=== PATIENT | female | born 1950 | race Caucasian/White ===

== ENCOUNTER 2020-04-29 09:20 | Outpatient (CLI) | payer MEDICARE, SELFPAY ==
--- NOTE | ~2020-04-29 | US_ITS ---
EXAMINATION: US right upper quadrant EXAM DATE: 04/29/2020 09:54 INDICATION: Reflux. TECHNIQUE: Multiple grayscale and Doppler images of the abdomen right upper quadrant were obtained (anabela y a technologist who performed the scan) and subsequently reviewed. There is no prior study for francois mata. FINDINGS: The pancreatic head and body are normal in appearance. The pancreatic tail is not visualized. The l iver has normal echogenicity and contour. There are no focal liver lesions identified. There is no evidence of intrahepatic biliary duct dilation. Portal venous flow was seen in the hepatopedal, nor mal direction and has normal Doppler waveform. No right-sided hydronephrosis. Common bile duct measures 3 mm, which is normal. The gallbladder wall is normal in thickness, with ex pected amount of distention. No sonographic evidence of pericholecystic fluid. There is no cholelit hiases. Technologist performing exam reports patient did not demonstrate sonographic Dugan's sign. Please note that this sign is less reliable in patients who have received pain medication. IMPRESSION: 1. Unremarkable abdominal ultrasound exam. Reviewed, dictated and finalized at location A.
== END 2020-04-29 09:21 | disposition home or self-care (01) ==
LOC: ANHIMG 09:28
DX: K21.9 Gastro-esophageal reflux disease without esophagitis (principal)
CPT/HCPCS: 76705

== ENCOUNTER 2020-05-20 13:07 | Outpatient (CLI) | payer MEDICARE, SELFPAY ==
[2020-05-20 18:35] LABS: SARS-CoV-2 RNA PCR Negative
== END 2020-05-20 13:08 | disposition home or self-care (01) ==
LOC: ANHCOVIDDT 06-02 13:08
PROVIDERS: PCP Family Medicine; Visit Provider Internal Medicine Gastroenterology
DX: Z01.812 Encounter for preprocedural laboratory examination (principal); Z11.59 Encounter for screening for other viral diseases
CPT/HCPCS: 87635; C9803; U0003

== ENCOUNTER 2020-05-22 01:43 | Day surgery (SDC) | payer MEDICARE, SELFPAY ==
[2020-05-14 12:31] VITALS: BMI 55.3
[2020-05-22 09:24] VITALS: BP 138/90; PULSE 77; RESP 18; TEMP 36.4; O2SAT 98; BMI 55.0
--- NOTE | 2020-05-22 09:33 | WPDANESEPPF ---
Anes - Initial Pre Proc Eval Procedure: Operation Date: 05/22/20 09:30 Proposed Procedures p Screening Colonoscopy - Jerod Piña MD Date/Time: 05/22/20 09:33 Surgeon: Jerod Piña MD Pre Op Diagnosis: neoplasm Screening Patient Data Age: 69 Gender: F Height: 5 ft 8 in Weight: 164.4 kg Last Vital Signs Temp 36.4 C L 05/22/20 09:24 Pulse 77 05/22/20 09:24 Resp 18 05/22/20 09:24 BP 138/90 05/22/20 09:24 Pulse Ox 98 05/22/20 09:24 Allergies Allergy/AdvReac Type Severity Reaction Status Date / Time No Known Allergies Allergy Verified 05/22/20 09:23 Home Medications Medication Instructions Recorded Confirmed Type amlodipine 5 mg PO DAILY 05/14/20 05/14/20 History cetirizine [Zyrtec] 10 mg PO DAILY 05/14/20 05/14/20 History losartan 100 mg PO DAILY 05/14/20 05/14/20 History metoprolol tartrate 50 mg PO BID 05/14/20 05/14/20 History montelukast 10 mg PO DAILY 05/14/20 05/14/20 History oxybutynin chloride 10 mg PO DAILY 05/14/20 05/14/20 History sertraline 100 mg PO DAILY 05/14/20 05/14/20 History simvastatin 40 mg PO DAILY 05/14/20 05/14/20 History trazodone 100 mg PO DAILY 05/14/20 05/14/20 History Patient hx anesthesia problems: none Family hx anesthesia problems: none PMFSH Past Medical History Medical History (Updated 05/22/20 @ 09:33 by Axel Cedeño MD) HTN (hypertension) Hyperlipidemia Morbid obesity JARED on CPAP Surgical History Surgical History (Updated 05/22/20 @ 09:34 by Axel Cedeño MD) History of total knee arthroplasty Family History Family History Sibling Diabetes mellitus Family history of gastrointestinal disorder Father Family history of lung cancer Other Family history of arthritis Family history of malignant neoplasm Hypertension Social History Social History Smoking status: Never smoker Alcohol intake: never Anes - Eval Final PreProcedure Day of Procedure 05/22/20 09:33 Patient weight: morbidly obese Heart: regular rate and rhythm Lungs: clear to auscultation Airway: Mallampati scale class II Neurological: alert and oriented Last oral intake: >/= 8 hours ASA classification: III Emergent: no Anesthetic plan: proceed Anesthesia type and monitoring: general GIVS and standard monitoring Informed Consent: The patient's anesthetic plan and its attendant risks and benefits were discussed with the patient/family/POA. Questions were solicited and answers provided to the satisfaction of the patient/family/POA.
[2020-05-22] MEDS: LACTATED RINGERS 1,000 ML 150 ML IV CONT (09:37)
--- NOTE | 2020-05-22 10:03 | WPDGICN ---
Assessment and Plan Assessment and plan (1) Encounter for screening colonoscopy: Code(s): Z12.11 - Encounter for screening for malignant neoplasm of colon Status: Acute Assessment and Plan: Patient appears to be at average risk for colon cancer. Screening colonoscopy advised this report follow separately. Further recommendations will be given after endoscopy. (2) Morbid obesity: Code(s): E66.01 - Morbid (severe) obesity due to excess calories Status: Acute GI Consult Note Consult date/time: 05/22/20 10:03 HPI: Kami Miller is a 69 year old female Seen in evaluation at the request of Dr. Racquel Hopkins. patient presents for screening colonoscopy. Her current weight appetite bowel movements are normal. She denies abdominal pain. She has had no bleeding. Family history is noncontributory. Review of Systems Review of Systems: All systems reviewed & are unremarkable except as noted in HPI and below PMFSH Past Medical History Medical History HTN (hypertension) Hyperlipidemia Morbid obesity JARED on CPAP Surgical History Surgical History History of total knee arthroplasty Family History Family History Sibling Diabetes mellitus Family history of gastrointestinal disorder Father Family history of lung cancer Other Family history of arthritis Family history of malignant neoplasm Hypertension Social History Social History Smoking status: Never smoker Alcohol intake: never Meds Home Medications and Allergies Home Medications Medication Instructions Recorded Confirmed Type amlodipine 5 mg PO DAILY 05/14/20 05/14/20 History cetirizine [Zyrtec] 10 mg PO DAILY 05/14/20 05/14/20 History losartan 100 mg PO DAILY 05/14/20 05/14/20 History metoprolol tartrate 50 mg PO BID 05/14/20 05/14/20 History montelukast 10 mg PO DAILY 05/14/20 05/14/20 History oxybutynin chloride 10 mg PO DAILY 05/14/20 05/14/20 History sertraline 100 mg PO DAILY 05/14/20 05/14/20 History simvastatin 40 mg PO DAILY 05/14/20 05/14/20 History trazodone 100 mg PO DAILY 05/14/20 05/14/20 History Allergies Allergy/AdvReac Type Severity Reaction Status Date / Time No Known Allergies Allergy Verified 05/22/20 09:23 Vital Signs Vital Signs - 24 hr 05/22/20 09:24 Temperature 97.5 F L Pulse Rate 77 Respiratory Rate 18 Blood Pressure 138/90 Pulse Oximetry 98 Exam Narrative: Exam Narrative: Physical exam reveals patient to be alert. Vital signs stable. HEENT exam unremarkable. Lungs are clear to auscultation and percussion. Heart is without murmur or extra sounds. Abdominal exam is somewhat obese. Bowel sounds are present soft nontender with no past splenomegaly. Digital external rectal exam normal.
[2020-05-22 10:37] VITALS: BP 94/53; PULSE 78; RESP 31; O2SAT 98
[2020-05-22 10:47] VITALS: BP 106/76; PULSE 78; RESP 21; RESP 22; O2SAT 99
== END 2020-05-22 11:07 | disposition home or self-care (01) ==
PROVIDERS: PCP Family Medicine; Visit Provider Internal Medicine Gastroenterology
PROC: 0DJD8ZZ Inspection of Lower Intestinal Tract, Via Natural or Artificial Opening Endoscopic (ICD-10-PCS; CPT 45378; principal; 2020-05-22 09:30)
DX: Z12.11 Encounter for screening for malignant neoplasm of colon (principal); K64.8 Other hemorrhoids; I10 Essential (primary) hypertension; E78.5 Hyperlipidemia, unspecified; G47.33 Obstructive sleep apnea (adult) (pediatric); E66.01 Morbid (severe) obesity due to excess calories; Z68.43 Body mass index [BMI] 50.0-59.9, adult
CPT/HCPCS: G0121; J2704; J7120

== ENCOUNTER 2021-02-10 11:18 | Outpatient (CLI) | payer MEDICARE, SELFPAY ==
--- NOTE | ~2021-02-10 | XR_ITS ---
EXAMINATION: XR femur LT min 2V, XR hip LT min 3V w AP pelvis DATE: 02/10/2021 12:09 INDICATION: Left hip and leg pain with nighttime cramping. TECHNIQUE: 1. Anteroposterior view of the pelvis and anteroposterior, frog leg and cross-table lateral views of the left hip were obtained. 2. AP and lateral views of the left femur were obtained on overlapping proximal and distal radiograph s. COMPARISON: None. FINDINGS: Lateral plate and screw fixation spanning an old healed fracture of the distal left femoral diaphysis which has healed in essentially anatomic alignment. There is also a left total knee arthroplasty wit hout patellar resurfacing also in near-anatomic alignment. 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 No acute fracture. No suspected osteonecrosis. No left knee joint effusion. IMPRESSION: 1. No acute osseous abnormality. 2. Left total knee arthroplasty and internal fixation of an old healed distal left femoral diaphyseal fracture, both in near-anatomic alignment. Reviewed, dictated and finalized at location A. IMPRESSION: 1. No acute osseous abnormality. 2. Left total knee arthroplasty and internal fixation of an old healed distal l eft femoral diaphyseal fracture, both in near-anatomic alignment.
== END 2021-02-10 11:19 | disposition home or self-care (01) ==
PROVIDERS: PCP Family Medicine; Visit Provider Family Medicine
DX: M25.552 Pain in left hip (principal); Z96.652 Presence of left artificial knee joint
CPT/HCPCS: 73502; 73552

== ENCOUNTER → 2022-10-27 00:13 | Day surgery (SDC) | payer MEDICARE, SELFPAY ==
[2022-10-20 11:00] VITALS: BP 101/66; PULSE 51; RESP 15; O2SAT 99
[2022-10-26 09:22] VITALS: BMI 55.5
[2022-10-26 10:45] VITALS: BP 109/73; PULSE 59; RESP 14; O2SAT 99
[2022-10-27] VITALS (11 sets, daily range): BP systolic 97–118; BP diastolic 53–90; PULSE 52–88; RESP 11–20; TEMP 36.5; O2SAT 95–100; BMI 55.9
--- NOTE | 2022-10-27 08:30 | ECG_ITS ---
Measurements Intervals [place] Rate: 58 P: 55 HI: 221 QRS: 6 QRSD: 95 T: -12 QT: 430 QTc: 423 Interpretive Statements SINUS BRADYCARDIA WITH FIRST DEGREE AV BLOCK NONSPECIFIC T-WAVE ABNORMALITY- INFERIOR LEADS BORDERLINE ECG COMPARED TO ECG 10/27/2022 08:51:17 SINUS BRADYCARDIA NOW PRESENT FIRST DEGREE AV BLOCK NOW PRESENT Electronically Signed On 10-27-2022 10:51:19 PAYROLL TECHNICIAN by Nam Carlton D.O.
[2022-10-27 09:23] LABS: Anion Gap 6 mmol/L (8-16); Blood Urea Nitrogen 15 mg/dL (7-17); Calcium 9.1 mg/dL (8.4-10.2); Carbon Dioxide 31 mmol/L (22-30); Chloride 101 mmol/L (98-107); Estimated CRCL calculation 101 ml/min; Estimated Glomerular Filt Rate > 60; Glucose 103 mg/dL (65-110); Magnesium 1.9 mg/dL (1.6-2.3); Potassium 3.5 mmol/L (3.4-5.0); Sodium 138 mmol/L (137-145)
--- NOTE | 2022-10-27 10:00 | WPDHPUPDATE1 ---
History and Physical Update Update Date/Time: 10/27/22 10:00 History and Physical has been reviewed, including an updated exam of the patient. There are NO changes in the patient's condition. Risks, benefits, and alternatives have been discussed and questions answered. Patient agrees to proceed with procedure.
--- NOTE | 2022-10-27 10:01 | WPDMODSED ---
Moderate Sedation Note-Pt Data Patient Data Diagnosis: Atrial fibrillation Present Complaint: None Procedure to be performed/Plan: Elective electrical cardioversion Allergies Allergy/AdvReac Type Severity Reaction Status Date / Time pollen extracts Allergy Unknown Verified 10/27/22 08:50 Home Medications Medication Instructions Recorded Confirmed Type amlodipine 5 mg tablet 5 mg PO DAILY 05/14/20 10/26/22 History cetirizine 10 mg capsule (Zyrtec) 10 mg PO DAILY 05/14/20 10/26/22 History losartan 100 mg tablet 100 mg PO DAILY 05/14/20 10/26/22 History metoprolol tartrate 50 mg tablet 50 mg PO BID 05/14/20 10/26/22 History montelukast 10 mg tablet 10 mg PO DAILY 05/14/20 10/26/22 History oxybutynin chloride 10 mg 10 mg PO DAILY 05/14/20 10/26/22 History tablet,extended release 24 hr sertraline 100 mg tablet 100 mg PO DAILY 05/14/20 10/26/22 History simvastatin 40 mg tablet 40 mg PO DAILY 05/14/20 10/26/22 History trazodone 100 mg tablet 100 mg PO DAILY PRN Pain 05/14/20 10/26/22 History apixaban 5 mg tablet (Eliquis) 5 mg PO BID 10/26/22 10/26/22 History cholecalciferol (vitamin D3) 50 50 mcg PO DAILY 10/26/22 10/26/22 History mcg (2,000 unit) tablet pantoprazole 40 mg tablet,delayed 40 mg PO DAILY 10/26/22 10/26/22 History release tramadol 50 mg tablet 50 mg PO HS PRN Pain 10/26/22 10/26/22 History triamterene 37.5 1 tablet PO DAILY 10/26/22 10/26/22 History mg-hydrochlorothiazide 25 mg tablet Current Medications: Active Medications Sodium Chloride (Normal Saline Iv) 1,000 mls @ 30 mls/hr IV CONT .Q24H JOSE Sedation/Anesthesia: No previous sedation/anesthesia problems (including family history). [facility] Past Medical History Medical History Atrial fibrillation HTN (hypertension) Hyperlipidemia Morbid obesity JARED on CPAP Surgical History Surgical History History of total knee arthroplasty Family History Family History Sibling Diabetes mellitus Family history of gastrointestinal disorder Father Family history of lung cancer Other Family history of arthritis Family history of malignant neoplasm Hypertension Social History Social History Smoking status: Never smoker Alcohol intake: never Alcohol use details: rare Substance use type: does not use Spiritual care concerns: No Mod Sed Physical Exam Physical Exam Pre Procedural Exam: Normal: Appearance, Eyes, Ears, Nose, Neck (Supple, normal range of motion), Throat (Posterior hypopharynx clear nonerythematous), Airway (No obstruction, normal anatomy), Lungs (Clear to auscultation bilaterally), Heart Size, Heart Rate, Neuro Exam, Liver, Extremities and Skin and Variation: Heart Rhythm (Irregular irregular) and Abdomen (Obese) Hours since solid foods: 12 Hours since liquid intake: 12 Mallampati Classification: class III Internal Medicine - PN: Obj Da Vital Signs Vital Signs: Vital Signs - 24 hr 10/27/22 08:58 Temperature 36.5 C Pulse Rate 88 Respiratory Rate 20 Blood Pressure 118/79 Pulse Oximetry 98 Oxygen Delivery Room Air Meds/Results Medications: Active Medications Generic Name Dose Route Start Last Admin Trade Name Freq PRN Reason Stop Dose Admin Sodium Chloride 1,000 mls @ 30 mls/hr 10/27/22 08:30 Normal Saline Iv IV CONT .Q24H JOSE Labs 10/27/22 08:55 Labs: Laboratory Results - last 24 hr 10/27/22 08:55 Sodium 138 Potassium 3.5 Chloride 101 Carbon Dioxide 31 H Anion Gap 6 L BUN 15 Creatinine 0.70 Estim Creat Clear Calc 101 Estimated GFR > 60 Glucose 103 Calcium 9.1 Magnesium 1.9 ASA Classification/Sedation ASA Classification/Sedation ASA Class: IV Emergent: No Risks: Risks, benefits and altern
--- NOTE | 2022-10-27 10:04 | P.PCNCVR_ITS ---
Cardioversion Cardioversion Date of procedure: 10/27/22 Procedure: Elective electrical cardioversion Pre-op diagnosis: Atrial fibrillation Post-op diagnosis: Same Indications: Atrial fibrillation Description of procedure: Brief history present illness: Patient is a pleasant 72-year-old female with recent diagnosis atrial fibrillation, hypertension, JARED on CPAP, morbid obesity, hyperlipidemia maintaining chronic anticoagulation for greater than 4 weeks subsequently referred for elective electrical cardioversion in attempt to restore sinus rhythm. Procedure in detail: After verbal and written informed consent was obtained the patient risks, benefits, and alternatives explained in detail the patient agreed to proceed with the plan of care as outlined above. Patient was evaluated at bedside in the [facility] room. On examination, neck was supple with normal range of motion, no restrictions to opening of the oral cavity, jaw angle and posterior hypopharynx was clear. Lungs were clear to auscultation. Patient was placed in appropriate 30 to 45 degree angle in a supine position. Patient was monitored throughout the study with telemetry, oxygen saturation, end-tidal CO2 monitoring, blood pressure, heart rate, and respirations. Anterior and posterior defibrillator pads placed in the appropriate positions. After confirmation of adequate sedation electrical cardioversion was carried out without complication. Patient tolerated the procedure well without difficulty. Patient utilized her home CPAP unit for support during the procedure inspected by respiratory therapy prior to initiation. Sedation: Moderate Sedation/Anesthesia administration: Patient denied previous intolerance or complications with anesthesia/sedation. Patient wore her home CPAP unit throughout sedation for respiratory support. Please see sedation note for documentation of the pre-procedure physical examination. A total of 5 mg intravenous Versed and a total of 125 mcg intravenous Fentanyl in multiple divided doses was utilized for moderate sedation. Sedation start time was 1018 and end time was 1039 for a total of 21 minutes [id number] intra-procedure time. Sedation was administered by a qualified observer Jennifer Allen RN under my supervision with intra-procedure [id number] observation and management throughout the entirety of the procedure. There were no other issues or complications and patient tolerated the procedure well and sedation protocol well and I was present for the entirety. Findings: Elective electrical cardioversion: After confirmation of adequate sedation and persistence of atrial fibrillation, 200 joules synched biphasic energy x1 was delivered with immediate mormonism of sinus rhythm. Twelve lead EKG was obtained postprocedure confirming sinus rhythm. Complications: None Conclusion: Successful mormonism of sinus rhythm with 200 joules synched biphasic energy x1. Recommendations: Continue systemic anticoagulation without discontinuation unless advised and particularly for the next 30 days post cardioversion.
--- NOTE | 2022-10-27 10:05 | ECG_ITS ---
Measurements Intervals [place] Rate: 84 P: LA: 0 QRS: 0 QRSD: 91 T: -6 QT: 386 QTc: 456 Interpretive Statements ATRIAL FIBRILLATION CONSIDER INFERIOR INFARCT, AGE INDETERMINATE BASELINE ARTIFACT- I, II, AVR, AVL ABNORMAL ECG NO PREVIOUS ECG AVAILABLE FOR COMPARISON Electronically Signed On 10-27-2022 9:37:25 IDENTIFICATION AND RECORDS COMMANDER by Nam Carlton D.O.
--- NOTE | 2022-10-27 12:01 | SUR.PHASEII ---
stable at time of d/c to exit. d/c via wheelchair with belongings.
== END | disposition home or self-care (01) ==
PROVIDERS: PCP Family Medicine; Visit Provider Internal Medicine Cardiovascular Disease
PROC: 5A2204Z Restoration of Cardiac Rhythm, Single (ICD-10-PCS; principal; 2022-10-27 10:00)
DX: I48.19 Other persistent atrial fibrillation (principal); I10 Essential (primary) hypertension; E78.2 Mixed hyperlipidemia; G47.33 Obstructive sleep apnea (adult) (pediatric); E66.01 Morbid (severe) obesity due to excess calories; Z68.43 Body mass index [BMI] 50.0-59.9, adult; Z79.01 Long term (current) use of anticoagulants
CPT/HCPCS: 36415; 80048; 83735; 92960; J2250; J3010; J7030

== ENCOUNTER 2023-02-06 13:02 | Emergency (ER) | payer MEDICARE, SELFPAY ==
--- NOTE | ~2023-02-06 | XR_ITS ---
EXAMINATION: XR chest 2V DATE: 02/06/2023 14:22 INDICATION: Shortness of breath and cough TECHNIQUE: PA and lateral views of the chest are obtained. COMPARISON: 02/23/2018 FINDINGS: The lungs are free of acute opacities. No pleural effusion or pneumothorax. The cardiomedia stinal silhouette is normal. There is moderate thoracic spondylosis. IMPRESSION: 1. No acute cardiopulmonary abnormality. Reviewed, dictated and finalized at location F.
[2023-02-06 13:21] VITALS: BP 103/89; PULSE 63; RESP 16; TEMP 37.2; O2SAT 99
--- NOTE | 2023-02-06 13:55 | ED.GENADULT ---
HPI - General Adult General Chief complaint: Upper Respiratory Infection Stated complaint: shortness of breath,cough,congestion Time Seen by Provider: 02/06/23 13:50 Source: patient Mode of arrival: ambulatory Limitations: no limitations History of Present Illness HPI narrative: 72 years old female who presents to [facility] care with complaints of cough, congestion, aching and some shortness of breath since Tuesday.Patient reports that initially she had sinus congestion that went into cough which at times is productive but mainly dry hacking and is keeping her awake at night. Patient reports that she does have some sore throat, denies any ear pain or fevers. Patient reports daughter recent diagnosis of strep. Patient has taken OTC allergy medication and Singulair daily, has taken some Mucinex. MD complaint: cough , congestion,dyspnea Onset (ago): day(s) (4-5 days) Severity scale (1-10): 3 Treatments prior to arrival: other (zyrtec, Singulair, Mucinex) Related Data Home Medications Medication Instructions Recorded Confirmed amlodipine 5 mg tablet 5 mg PO DAILY 05/14/20 02/06/23 cetirizine 10 mg capsule (Zyrtec) 10 mg PO DAILY 05/14/20 02/06/23 losartan 100 mg tablet 100 mg PO DAILY 05/14/20 02/06/23 metoprolol tartrate 50 mg tablet 50 mg PO BID 05/14/20 02/06/23 montelukast 10 mg tablet 10 mg PO DAILY 05/14/20 02/06/23 oxybutynin chloride 10 mg 10 mg PO DAILY 05/14/20 02/06/23 tablet,extended release 24 hr sertraline 100 mg tablet 100 mg PO DAILY 05/14/20 02/06/23 simvastatin 40 mg tablet 40 mg PO DAILY 05/14/20 02/06/23 apixaban 5 mg tablet (Eliquis) 5 mg PO BID 10/26/22 02/06/23 cholecalciferol (vitamin D3) 50 50 mcg PO DAILY 10/26/22 02/06/23 mcg (2,000 unit) tablet pantoprazole 40 mg tablet,delayed 40 mg PO DAILY 10/26/22 02/06/23 release tramadol 50 mg tablet 50 mg PO HS PRN Pain 10/26/22 02/06/23 triamterene 37.5 1 tablet PO DAILY 10/26/22 02/06/23 mg-hydrochlorothiazide 25 mg tablet Allergies Allergy/AdvReac Type Severity Reaction Status Date / Time pollen extracts Allergy Unknown Verified 02/06/23 13:05 Review of Systems Review of Systems: CONSTITUTIONAL: Denies malaise, chills, sweats, or fever. EYES: Denies visual changes, redness, or discharge. ENT: Reports rhinorrhea, congestion, sinus pain, no otalgia some sore throat. CARDIOVASCULAR: Denies chest pain, palpitations, or edema. RESPIRATORY: Reports cough.?Reports some dyspnea. GASTROINTESTINAL: Denies abdominal pain, nausea, vomiting, diarrhea SKIN: Denies rash or itching. MUSCULOSKELETALReports myalgia. NEUROLOGIC: Denies headache. All systems reviewed & are unremarkable except as noted in HPI and below PMFSH Past Medical History Medical History (Updated 02/07/23 @ 22:43 by Geno Nicolas NP) Atrial fibrillation Femur fracture, left orif HTN (hypertension) Hyperlipidemia Morbid obesity JARED on CPAP Surgical History Surgical History (Updated 02/07/23 @ 22:43 by Geno Nicolas NP) H/O inguinal hernia repair History of appendectomy History of total knee arthroplasty bilateral Hx of cataract surgery Family History Family History Sibling Diabetes mellitus Family history of gastrointestinal disorder Father Family history of lung cancer Other Family history of arthritis Family history of malignant neoplasm Hypertension Social History Social History Smoking status: Never smoker Alcohol intake: never Alcohol use details: rare Substance use type: does not use Spiritual care concerns: No Comments At time of signature, agree with nursing past medical, surgical, social and family history. There is no relevant family history pertinent to the presenting complaint Exam Narrative: GENERAL: Well-appearing, well-nourished, and in no acute distress. HEAD: Normoceph
== END 2023-02-06 15:00 | disposition home or self-care (01) ==
PROVIDERS: Emergency Provider Registered Nurse; PCP Family Medicine
DX: J40 Bronchitis, not specified as acute or chronic (principal); I48.91 Unspecified atrial fibrillation; I10 Essential (primary) hypertension; E78.5 Hyperlipidemia, unspecified; G47.33 Obstructive sleep apnea (adult) (pediatric); E66.01 Morbid (severe) obesity due to excess calories; Z68.43 Body mass index [BMI] 50.0-59.9, adult; Z96.653 Presence of artificial knee joint, bilateral
CPT/HCPCS: 71046; 87081; 87804; 87880; 99213; G0463

== ENCOUNTER 2023-08-26 06:37 | Outpatient (CLI) | payer MEDICARE, SELFPAY ==
--- NOTE | ~2023-08-26 | CT_ITS ---
EXAMINATION: CT abdomen pelvis wo/w con DATE: 08/26/2023 07:20 INDICATION: Hematuria. Left upper quadrant abdominal pain. TECHNIQUE: Computed tomography (CT) of the abdomen and pelvis was performed without and subsequently with 130 CC Omnipaque 350 intravenous contrast. Automated exposure control and iterative reconstructi on technique were employed. Exam dose: 3201.27 mGy-cm total exam DLP. COMPARISON: 07/09/2016 CT abdomen pelvis FINDINGS: The lung bases are clear of infiltrate or consolidation. Normal heart size. No pericardial or pleural effusion. Heart size is within normal range. There is coronary artery calcification. No pericardial or pleural effusion. The liver, spleen, pancreas, gallbladder, bile ducts and pancreatic duct and adrenal glands appear no rmal. There is an approximately 1.7 cm poorly circumscribed hypoattenuating mass with some enhancement of t he posterior aspect of the upper pole the right kidney. Hypernephroma is not excluded. There are scattered probable small right renal left renal cysts, too small to definitively characteri ze. Consider MR examination of the kidneys. No urinary tract calculus or hydroureteronephrosis. Prominent benign appearing calcification in the region of the uterine fundus may be a calcified seros al uterine fibroid. No ovarian or adnexal mass lesion. There is atherosclerotic calcification but normal caliber of the abdominal aorta. No intraperitoneal or retroperitoneal or pelvic mass lesion or adenopathy or ascites is detected. No bowel obstruction, bowel wall thickening, pneumatosis or intraperitoneal free air is detected. Degenerative change of the included lower thoracic spine. Severe lumbar spondylosis. No suspicious osteolytic or osteoblastic lesions are noted. IMPRESSION: Poorly circumscribed 1.7 cm mass of the posterior upper pole of the right kidney, suspic ious for possible hypernephroma. Multiple hypoattenuating lesions of both kidneys, too small to definitively characterize. Consider MR kidney examination for further evaluation Reviewed, dictated and finalized at Location A. Reviewed, dictated and finalized at location B. PLOTTER IMPRESSION: Poorly circumscribed 1.7 cm mass of the posterior upper pole of th e right kidney, suspicious for possible hypernephroma. Multiple hypoattenuating lesions of both kidneys, too small to definitively amanda racterize. Consider MR kidney examination for further evaluation
[2023-08-26 07:05] LABS: Estimated Glomerular Filt Rate > 60
== END 2023-08-26 06:38 | disposition home or self-care (01) ==
PROVIDERS: PCP Family Medicine; Visit Provider Family Medicine
DX: N28.89 Other specified disorders of kidney and ureter (principal); R10.12 Left upper quadrant pain; R31.9 Hematuria, unspecified
CPT/HCPCS: 74178; Q9967

== ENCOUNTER 2023-09-24 13:06 | Emergency (ER) | payer MEDICARE, SELFPAY ==
--- NOTE | ~2023-09-24 | XR_ITS ---
XR wrist RT min 3V 09/24/2023 13:26 Indication: Right wrist trauma with pain Procedure: 4 views right wrist Comparison: No prior studies for comparison. 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 Osteopenia. Th ere is chondrocalcinosis. No acute fracture or traumatic malalignment. No foreign bodies. Impression: 1: No acute fracture. Reviewed, dictated and finalized at location A. TION DESCRIPTION MANAGER Impression: 1: No acute fracture.
[2023-09-24 13:16] VITALS: BP 146/78; PULSE 66; RESP 16; TEMP 35.7; O2SAT 100
--- NOTE | 2023-09-24 13:16 | ED.UPPEXIN ---
HPI - Extremity Injury (Upper) General Chief Complaint: Extremity Injury, Upper Stated Complaint: Right Hand Pain Time Seen by Provider: 09/24/23 13:17 Source: patient Mode of arrival: ambulatory Limitations: no limitations History of Present Illness HPI narrative: Chantal is a 73-year-old female patient presenting to the clinic today with complaints of right wrist pain. She reports yesterday afternoon she was sitting in a chair when the chair broke and she injured her right wrist. Reports the pain has gradually gotten worse since yesterday. Is now unable to flex and extend her wrist without significant pain. Reports the pain radiates into her hand and slightly into her forearm. Related Data Home Medications Medication Instructions Recorded Confirmed amlodipine 5 mg tablet 5 mg PO DAILY 05/14/20 02/06/23 cetirizine 10 mg capsule (Zyrtec) 10 mg PO DAILY 05/14/20 02/06/23 losartan 100 mg tablet 100 mg PO DAILY 05/14/20 02/06/23 metoprolol tartrate 50 mg tablet 50 mg PO BID 05/14/20 02/06/23 montelukast 10 mg tablet 10 mg PO DAILY 05/14/20 02/06/23 oxybutynin chloride 10 mg 10 mg PO DAILY 05/14/20 02/06/23 tablet,extended release 24 hr sertraline 100 mg tablet 100 mg PO DAILY 05/14/20 02/06/23 simvastatin 40 mg tablet 40 mg PO DAILY 05/14/20 02/06/23 apixaban 5 mg tablet (Eliquis) 5 mg PO BID 10/26/22 02/06/23 cholecalciferol (vitamin D3) 50 50 mcg PO DAILY 10/26/22 02/06/23 mcg (2,000 unit) tablet pantoprazole 40 mg tablet,delayed 40 mg PO DAILY 10/26/22 02/06/23 release tramadol 50 mg tablet 50 mg PO HS PRN Pain 10/26/22 02/06/23 triamterene 37.5 1 tablet PO DAILY 10/26/22 02/06/23 mg-hydrochlorothiazide 25 mg tablet Allergies Allergy/AdvReac Type Severity Reaction Status Date / Time pollen extracts Allergy Unknown Verified 02/06/23 13:05 Review of Systems Review of Systems: Pertinent positives per HPI. Patient denies any fever, chills, rash, headache, visual changes, dizziness, cough, runny nose, sore throat, shortness of breath, chest pain, palpitations, nausea, vomiting, diarrhea, constipation, abdominal pain, or any urinary issues. [facility] Past Medical History Medical History Atrial fibrillation Femur fracture, left orif HTN (hypertension) Hyperlipidemia Morbid obesity JARED on CPAP Surgical History Surgical History H/O inguinal hernia repair History of appendectomy History of total knee arthroplasty bilateral Hx of cataract surgery Family History Family History Sibling Diabetes mellitus Family history of gastrointestinal disorder Father Family history of lung cancer Other Family history of arthritis Family history of malignant neoplasm Hypertension Social History Social History Smoking status: Never smoker Alcohol intake: never Alcohol use details: rare Substance use type: does not use Spiritual care concerns: No Comments At the time of my signature, I reviewed and agree with the nursing past medical, surgical, social, and family history. There is no relevant family history pertinent to the patient complaint. Exam Narrative: General: Well-developed, morbidly obese, in no apparent distress Head: Normocephalic, atraumatic. Cardio: Regular rate and rhythm, s1 and s2 normal, no murmur appreciated. Resp: Clear to auscultation bilaterally, no rhonchi, rales, wheezing or rubs. Musculoskeletal: No deformity,tender to palpation over the radius and ulna the right wrist, pain with flexion and extension of the wrist as well as ulnar and radial deviation, range of motion limited due to pain, muscle strength strong and equal, peripheral pulse strong, no edema, no cyanosis, normal gait and station Course Course Emergency Co
== END 2023-09-24 13:41 | disposition home or self-care (01) ==
PROVIDERS: Emergency Provider Nurse Practitioner Family; PCP Family Medicine
DX: S63.501A Unspecified sprain of right wrist, initial encounter (principal); I48.91 Unspecified atrial fibrillation; I10 Essential (primary) hypertension; E78.5 Hyperlipidemia, unspecified; X58.XXXA Exposure to other specified factors, initial encounter
CPT/HCPCS: 73110; 99213; G0463

== ENCOUNTER 2023-09-28 15:25 | Outpatient (CLI) | payer MEDICARE, SELFPAY ==
--- NOTE | ~2023-09-28 | MR_ITS ---
EXAMINATION: MR abdomen wo/w con DATE: 09/28/2023 17:13 INDICATION: Renal mass. TECHNIQUE: Magnetic resonance imaging (MRI) of the abdomen was performed without and with 20 mL Multi [place] intravenous contrast. COMPARISON: CT abdomen and pelvis 08/26/2023 FINDINGS: There is diffuse hepatic steatosis. The gallbladder is normal. There is a 12 mm cyst in the spleen. T here are 2 cystic lesions of the pancreas with the larger measuring 7 mm . There are cysts in the kid neys measuring up to 7 mm. There is a 13 mm hemorrhagic cyst in right kidney. There are no dilated lo ops of bowel. IMPRESSION: 1. Benign cysts in the kidneys. 2. Cystic lesions of the pancreas measuring up to 7 mm. The differential diagnosis includes pseudocys t, intraductal papillary mucinous neoplasm (IPMN), mucinous cystic neoplasm (MCN), serous cystadenoma , and neuroendocrine tumor. Abdomen MRI without and with contrast is recommended in 2 years. Reviewed, dictated and finalized at location E. FACTURING MANAGER IMPRESSION: 1. Benign cysts in the kidneys. 2. Cystic lesions of the pancreas measuring up to 7 mm. The differential diagno sis includes pseudocyst, intraductal papillary mucinous neoplasm (IPMN), mucino us cystic neoplasm (MCN), serous cystadenoma, and neuroendocrine tumor. Abdomen MRI without and with contrast is recommended in 2 years.
== END 2023-09-28 15:26 | disposition home or self-care (01) ==
PROVIDERS: PCP Family Medicine; Visit Provider Physician Assistant
DX: N28.89 Other specified disorders of kidney and ureter (principal); N28.1 Cyst of kidney, acquired; K86.2 Cyst of pancreas
CPT/HCPCS: 74183; A9577

== ENCOUNTER 2023-10-14 14:25 | Outpatient (CLI) | payer MEDICARE, SELFPAY ==
--- NOTE | ~2023-10-14 | MR_ITS ---
EXAMINATION: MR pelvis wo/w con DATE: 10/14/2023 16:14 INDICATION: Renal mass. TECHNIQUE: Magnetic resonance imaging (MRI) of the pelvis was performed without and with 20 mL MultiH ance intravenous contrast. COMPARISON: Abdomen MRI 09/28/2023, CT abdomen and pelvis 08/26/2023 FINDINGS: There are no dilated loops of bowel. There are no pathologically enlarged lymph nodes. There is no fr ee intraperitoneal fluid. There is prominent fat in the left inguinal canal that may be a hernia. IMPRESSION: 1. No evidence of metastatic disease. Reviewed, dictated and finalized at location E. HER WORKER
== END 2023-10-14 14:26 | disposition home or self-care (01) ==
PROVIDERS: PCP Family Medicine; Visit Provider Physician Assistant
DX: N28.89 Other specified disorders of kidney and ureter (principal)
CPT/HCPCS: 72197; A9577

== ENCOUNTER 2025-04-05 12:06 | Outpatient (CLI) | payer MEDICARE, SELFPAY ==
--- NOTE | ~2025-04-05 | XR_ITS ---
EXAM/ PROCEDURE: XR femur LT min 2V - 04/05/2025 12:23 CDT HISTORY: 74 years old Female with PAIN IN LEFT THIGHT COMPARISON: None available TECHNIQUE: Three view(s) FINDINGS/ IMPRESSION: Status post left knee arthroplasty and ORIF of distal tibia with intact hardware and no loosening. There are no fractures or dislocations.Joint space narrowing, subchondral sclerosis, subchondral cyst formation and osteophyte formation, compatible with mild osteoarthritis. Reviewed, dictated and finalized at location A.
--- NOTE | ~2025-04-05 | XR_ITS ---
EXAM/ PROCEDURE: XR knee LT 3V - 04/05/2025 12:23 CDT HISTORY: 74 years old Female with PAIN IN L THIGH;PAIN IN L KNEE COMPARISON: None available TECHNIQUE: Three view(s) FINDINGS/ IMPRESSION: Status post left knee arthroplasty and distal femur ORIF with intact hardware and no loosening. There are no fractures or dislocations. Reviewed, dictated and finalized at location A.
== END 2025-04-05 12:07 | disposition home or self-care (01) ==
PROVIDERS: PCP Family Medicine
DX: M79.652 Pain in left thigh (principal); M25.562 Pain in left knee; Z98.890 Other specified postprocedural states; Z96.652 Presence of left artificial knee joint
CPT/HCPCS: 73552; 73562